=== PATIENT | male | born 1955 | race Caucasian/White ===

== ENCOUNTER 2017-03-09 00:49 | Emergency (ER) | payer MEDICAID ==
[~2017-03-09] VITALS: Ht 177.8 cm; Wt 70.3 kg
[~2017-03-09 00:49] MED LIST: KEFLEX500 MG PO
[2017-03-09] MEDS ORDERED: LEVOTHYROXINE50 MCG PO (00:56)
[2017-03-09] MEDS ORDERED: ASPIR LOW81 MG PO (00:57)
[2017-03-09] MEDS ORDERED: CLOPIDOGREL75 MG PO (00:57)
[2017-03-09] MEDS ORDERED: NIFEDIPINE ER30 M1 PO (00:57)
[2017-03-09] MEDS ORDERED: PRAVASTATIN SOD20 MG PO (00:57)
[2017-03-09] MEDS ORDERED: NORCO 5-325 TA1 EACH PO (01:33)
[2017-03-09] MEDS ORDERED: CLINDAMYCIN HC300 MG PO (01:33)
[2017-03-09] MEDS ORDERED: Motrin,Rufen800 MG PO (01:33)
== END 2017-03-09 02:05 | disposition home or self-care (01) ==
LOC: ED 00:49
DX: K02.9 Dental caries, unspecified (principal); K04.01 Reversible pulpitis; F17.200 Nicotine dependence, unspecified, uncomplicated; Z79.899 Other long term (current) drug therapy; Z79.82 Long term (current) use of aspirin